=== PATIENT | male | born 1965 | race Caucasian/White ===

== ENCOUNTER → 2020-03-08 | Outpatient (CLI) | payer BC ==
[~2020-03-08] MED LIST: AMLODIPINE BESY10 MG PO; HYDROCHLOROTHIA25 M2 PO; IBUPROFEN200 M1 PO; LOSARTAN POTAS100 MG PO; METOPROLOL SUCC25 M1 PO; SILDENAFIL CITR50 MG PO; SPIRONOLACTONE50 MG PO
== END ==
LOC: LAB 09:23
PROVIDERS: ATTEND Student in an Organized Health Care Education/Training Program
DX: Z01.812 Encounter for preprocedural laboratory examination (principal); Z20.828 Contact with and (suspected) exposure to other viral communicable diseases

== ENCOUNTER 2020-03-13 06:41 | Day surgery (SDC) | payer BC ==
[~2020-03-13] VITALS: Ht 180.3 cm; Wt 111.1 kg
[2020-03-13 08:00] VITALS: BP 157/101
[2020-03-13 08:04] LABS: CALCIUM 10.3 mg/dL (8.5-10.1); CREATININE 1.2 mg/dL (0.7-1.3); POTASSIUM 4.3 mmol/L (3.5-5.1)
--- NOTE | 2020-03-13 09:53 | EKG ---
[address] [address] ELECTROCARDIOGRAM REPORT Name: JULIANE WORKMAN Room #: 150-5 [facility].#: [id number] Admission: 03/13/20 Attend Phys: Jamil Hart MD Discharge: Date of : 63 Report #: [id number] [facility] Test Date: 2020-03-13 Test Time: 08:12:30 Pat Name: JULIANE WORKMAN Department: Room: 150 5 Gender: M Mechanical Engineering Technologist: PHOE[place] : 1965 Requested By: Jamil Hart Order Number: [id number] : Jose Hilario Measurements Intervals [place] Rate: 63 P: 42 VT: 156 QRS: 51 QRSD: 103 T: 8 QT: 410 QTc: 420 Interpretive Statements Sinus rhythm Probable left atrial enlargement Minimal ST depression, lateral leads No previous ECG available for comparison Electronically Signed On 03-13-2020 9:53:13 INSURANCE CLAIMS ADJUSTER by Jose Hilario [email or web address] <ELECTRONICALLY SIGNED> By: Jose Hilario MD, [facility] 03/13/20 0953 1 Jose Hilario MD, FACC /EPI
[2020-03-13] MEDS ORDERED: PERCOCET 7.5-31 EAC1 PO (10:28)
[2020-03-13] MEDS ORDERED: ASPIRIN EC325 MG PO (10:29)
[2020-03-13 11:08] VITALS: BP 157/101
--- NOTE | 2020-03-17 18:18 | O ---
[facility] [place] [address] OPERATIVE REPORT Name: JULIANE WORKMAN Room #: DEP [facility] M..#: [id number] Admission: 03/13/20 Attend Phys: Jamil Hart MD Discharge: 03/13/20 Date of : 63 Report #: [id number] THIS REPORT FOR: cc: FRANCISCO ESCOBAR MD Physician not on staff Jamil Hart MD ~ DATE OF SERVICE: 03/13/2020 PREOPERATIVE DIAGNOSES: 1. 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 2. Left Lolis's deformity. POSTOPERATIVE DIAGNOSES: 1. 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 2. Left Lolis's deformity. PROCEDURE: 1. Left Achilles tendon debridement and repair. 2. Left Lolis's deformity excision. 3. Left flexor hallucis longus tendon transfer. SURGEON: Dr. Jamil Hart EXTERMINATOR TERMITE: Yenifer Kim ANESTHESIA: General. ESTIMATED BLOOD LOSS: Minimal. DRAINS: No drains. TOURNIQUET TIME: One hour. DESCRIPTION OF PROCEDURE: The patient brought to the operating room where he was placed under general anesthesia. Once under adequate general anesthesia, he was placed into a prone position on the operative table. The patient's left lower extremity was then prepped and draped in sterile manner. The extremity was elevated, exsanguinated, tourniquet placed 300 mmHg. A posterior incision along the Achilles tendon was then made. There was significant scarring and ossification of the distal tendon. Dissection was carried down to the tendon sheath, which was then elevated off of the tendon and the insertion. The entire insertion was then removed utilizing a #15 blade and a rongeur. The tendon itself was then debrided proximally approximately 5 cm. The Lolis's deformity was then excised utilizing a sagittal saw and a rongeur to remove the Lolis's deformity. Dissection was carried to the posterior ankle, exposing the flexor [address] [address] OPERATIVE REPORT Name: JULIANE WORKMAN Room #: DEP [facility] M.R.#: [id number] Admission: 03/13/20 Attend Phys: Jamil Hart MD Discharge: 03/13/20 Date of : 63 Report #: [id number] pollicis longus, which was then identified and followed into the fibro-osseous tunnel where it was incised and brought posteriorly into the wound. The tendon was tagged and subsequently a drill hole was placed through the calcaneus. The tendon was then brought through utilizing a Albert needle to the plantar foot. It was then fixed into place with a Bio-Tenodesis screw. The Achilles SpeedBridge was then drilled and tapped for and subsequently placed to bring the Achilles tendon down to the bone to the fresh cut bone of the calcaneus. Excellent fixation was achieved once complete. The wound was then irrigated copiously and closed with 2-0 Vicryl in deep and subcutaneous tissues and diego were used for the skin. The wound was dressed with Xeroform, 4 x 4s, and sterile soft compressive dressing with a short leg cast in plantar flexion was placed. Tourniquet was let down approximately one hour. Toes were pink and warm with good capillary refill. There were no complications from the procedure. The patient tolerated the procedure well and went to recovery room without incident. <ELECTRONICALLY SIGNED> By: Jamil Hart MD 03/17/20 1818 [id number] [id number] Jamil Hart MD /nt
== END 2020-03-13 12:06 | disposition home or self-care (01) ==
LOC: OR 06:41 → TBA 06:43 → OR 11:10
PROVIDERS: ATTEND Orthopaedic Surgery Foot and Ankle Surgery
DX: S86.012A Strain of left Achilles tendon, initial encounter (principal); M89.8X7 Other specified disorders of bone, ankle and foot; I10 Essential (primary) hypertension; F17.210 Nicotine dependence, cigarettes, uncomplicated; Z98.890 Other specified postprocedural states; Z79.899 Other long term (current) drug therapy; Z85.828 Personal history of other malignant neoplasm of skin; X58.XXXA Exposure to other specified factors, initial encounter; Y93.89 Activity, other specified; Y92.89 Other specified places as the place of occurrence of the external cause; Y99.8 Other external cause status
CPT/HCPCS: 50010; 50101; 50386; 50951; 51412; 56524; 56527; 57091; 57180; 58260; 62110; 62900; 70005